=== PATIENT | male | born 1975 | race Caucasian/White ===

== ENCOUNTER 2017-02-09 23:31 | Emergency (ER) | payer OTHER ==
--- NOTE | 2017-03-02 21:26 | ER ---
ADMIT: 02/09/2017 RM/LOC: ER [facility] MR#: [id number] [address] [id number] AM[address] SUN [address] [place] [address] Emergency Room Report SEX: M AGE: 41 : 1975 DATE: 02/09/2017 A 41-year-old male who comes to the Emergency Department with vague, very strange complaints with a somewhat confusing history. Complains of abdominal pain, back pain, arm pain, shortness of breath. He states this all started since he had a tooth pulled. He was on hydrocodone and clindamycin. See T- sheet for remainder of history and physical. His saturations remained greater than 93% throughout his stay in the Emergency Department . An ABG was attempted. He then refused further attempts. When I went in and talked to him, he then started complaining of no bowel movement for the past several days since starting the pain medicine. His diagnosis is shortness of breath, constipation. He was instructed to use Colace while taking pain pills and to follow up with his primary doctor if not better by Saturday. Santhosh Espinal MD/ nies JOB #: [id number] CC: Deni Faria MD, Attending Physician Carlitos Sal MD, Family Physician
== END 2017-02-10 00:50 | disposition home or self-care (01) ==
LOC: ER 23:31
DX: R06.02 Shortness of breath (principal); K59.00 Constipation, unspecified; F41.9 Anxiety disorder, unspecified; F17.210 Nicotine dependence, cigarettes, uncomplicated; Z79.899 Other long term (current) drug therapy